=== PATIENT | female | born 2000 | race Hispanic/Latino ===

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

== ENCOUNTER 2024-04-18 21:21 | Emergency (ER) | payer OTHER, SELFPAY ==
[2024-04-18 21:46] LABS: Bacteria/HPF None Seen HPF (None Seen); Bilirubin Negative (Negative); Blood, Urine Negative (Negative); CAUTI Indications for Culture Pelvic or flank pain; Clarity Clear (Clear); Glucose, Urine (Dipstick) Normal (Negative); Ketone, Urine Negative (Negative); Leukocyte Negative Leu/uL (Negative); Nitrite Negative (Negative); Protein, Urine (Dipstick) Negative (Neg-Trace); RBC/HPF None Seen HPF (0-3); Specific Gravity, Urine 1.013 (1.002-1.036); Squamous Epithelial 0-3 HPF (0-3); Urobilinogen Normal mg/dL (Less than 2); WBC/HPF 0-3 HPF (0-3)
[2024-04-18 21:47] LABS: Urine Culture Reflex No No
[2024-04-18 21:57] LABS: #Basophils 0.04 10x3/uL (0.0-0.2); %Basophils 0.6 % (0.0-1.0); %Eosinophils 7.4 % (0.0-10.0); %Lymphocytes 25.7 % (21.0-51.0); %Monocytes 8.3 % (0.0-10.0); %Neutrophils 57.4 % (42.0-75.0); Hematocrit 40.6 % (36.0-47.0); Hemoglobin 13.4 g/dL (12.0-16.0); Mean Corpuscular Hemoglobin 29.6 pg (27.0-31.0); Mean Corpuscular Volume 89.6 fL (78.0-98.0); Platelet Count 352 10x3/uL (130-400); RBC Distribution Width 13.1 % (11.5-14.5); Red Blood Cell (RBC) Count 4.53 mill/uL (4.20-5.40)
[2024-04-18 22:12] LABS: BHCG - Serum Negative (NEGATIVE); Pregs Control Background? CLEAR/WHITE (CLR/WHITE); Pregs Control Bar Appear? YES (CONTROL BAR)
[2024-04-18 22:27] LABS: ALT (SGPT) 17 U/L (8-55); AST (SGOT) 20 U/L (5-34); Albumin 3.5 g/dL (3.5-5.0); Alkaline Phosphatase 71 U/L (40-110); Anion Gap 13 mmol/L (10-20); BUN (Urea Nitrogen) 12 mg/dL (7.0-18.7); Bilirubin, Total 0.3 mg/dL (0.2-1.2); Calc. Creatinine Clearance 0 mL/min (70-130); Calcium 8.5 mg/dL (7.8-10.44); Carbon Dioxide 23 mmol/L (22-29); Chloride 107 mmol/L (98-107); Estimated GFR 124; Globulin 3.9 g/dL (2.4-3.5); Glucose 87 mg/dL (70-105); Lipase 17 U/L (8-78); Potassium 3.8 mmol/L (3.5-5.1); Protein, Total 7.4 g/dL (6.0-8.3); Sodium 139 mmol/L (136-145)
[2024-04-18] MEDS ORDERED: Ondansetron ODT 4 MG TAB ONE (22:27)
[2024-04-18] MEDS ORDERED: Dicyclomine 20 MG TAB ONE (22:27)
[2024-04-18] MEDS ORDERED: Pantoprazole DR 40 MG TAB ONE (22:29)
[2024-04-18] MEDS ORDERED: Ondansetron PF 4 MG/2 ML Vial ONE (23:24)
[2024-04-18] MEDS ORDERED: Pantoprazole 40 MG VIAL ONE (23:24)
[2024-04-19] MEDS ORDERED: Loperamide HCl 2 MG CAP ONE (00:22)
== END 2024-04-19 00:48 | disposition home or self-care (01) ==
LOC: ERS 21:21
DX: R19.7 Diarrhea, unspecified (principal)
CPT/HCPCS: 36415; 76705; 80053; 81001; 83690; 84703; 85025; 96374; 96375; C9113; J2405; Q0162

== ENCOUNTER 2025-07-09 18:15 | Emergency (ER) | payer SELFPAY | END 2025-07-09 23:37 | disposition home or self-care (01) | LOC: ERS 18:15 | DX: T40.711A Poisoning by cannabis, accidental (unintentional), initial encounter (principal); Z55.6 Problems related to health literacy | CPT/HCPCS: 93005; 99284; Q0162 ==